=== PATIENT | female | born 1960 | race Two or more races ===

== ENCOUNTER 2019-06-09 11:37 | Emergency (ER) | payer MEDICAID ==
[~2019-06-09] VITALS: Ht 162.6 cm; Wt 118.8 kg
[2019-06-09] MEDS ORDERED: ALPRAZolam 0.5 MG TAB PO ONE (13:45)
[2019-06-09] MEDS ORDERED: PANTOPRAZOLE 40 MG TAB PO ONE (13:45)
[2019-06-09 14:04] LABS: Basophils # (auto) 0 uL; Basophils % (auto) 0.2 % (0.0-2.0); Eosinophils # (auto) 0.1 uL; Eosinophils % (auto) 2.7 % (0.0-7.0); Hematocrit 35.2 % (36.0-46.0); Hemoglobin 11.7 g/dL (12.2-16.2); Lymphocytes # (auto) 1.5 uL; Lymphocytes % (auto) 38.3 % (10.0-50.0); Mean Corpuscular Hemoglobin 31.7 pg (28.0-32.0); Mean Corpuscular Hgb Conc. 33.2 g/dL (32.0-36.0); Mean Corpuscular Volume 95.5 fL (80.0-100.0); Monocytes # (auto) 0.4 uL; Neutrophils # (auto) 1.9 uL; Neutrophils % (auto) 48.8 % (37.0-80.0); Platelet Count (auto) 242 10^3/uL (140-450); Red Blood Cells 3.68 10^6/uL (4.0-5.20); Red Cell Distribution Width 13.4 % (11.8-14.3); White Blood Cell 3.8 10^3/uL (4.4-10.8)
[2019-06-09 14:19] LABS: Anion Gap 4 (5-15); Blood Urea Nitrogen 9 mg/dL (7-18); Calcium 9.9 mg/dL (8.5-10.1); Carbon Dioxide 24 mmol/L (21-32); Chloride 116 mmol/L (98-107); Glucose 94 mg/dL (74-106); Potassium 3.6 mmol/L (3.5-5.1); Sodium 144 mmol/L (136-145)
[2019-06-09 14:24] LABS: Alanine Aminotransferase 22 U/L (13-56); Alkaline Phosphatase 89 U/L (45-117); Aspartate Aminotransferase 13 U/L (15-37); Bilirubin, Total 0.3 mg/dL (0.2-1.0); GFR African American 98 mL/min; GFR Non-African American 81 mL/min; Total Protein 6.5 g/dL (6.4-8.2)
[2019-06-09 14:28] LABS: Partial Thromboplastin Time 25.1 sec (23.64-32.05)
[2019-06-09 15:20] LABS: Urine Bacteria NONE SEEN /hpf (None Seen); Urine Blood Negative /uL (Negative); Urine Mucus FEW (None Seen); Urine Specific Gravity 1.029 (1.001-1.035); Urine WBC 3 /hpf (0 - 5)
[2019-06-09 16:12] VITALS: BP 147/90
[2019-06-09 17:10] LABS: BUN/Creatinine Ratio 11.5
== END 2019-06-09 16:12 | disposition home or self-care (01) ==
LOC: ER 11:43
DX: K29.70 Gastritis, unspecified, without bleeding (principal); F41.0 Panic disorder [episodic paroxysmal anxiety]; F17.210 Nicotine dependence, cigarettes, uncomplicated; I11.0 Hypertensive heart disease with heart failure; I50.9 Heart failure, unspecified; Z88.6 Allergy status to analgesic agent
CPT/HCPCS: 36415; 74176; 80053; 81001; 84484; 85025; 85610; 85730